=== PATIENT | male | born 1965 ===

== ENCOUNTER 2017-04-25 07:08 | Observation (INO) | payer OTHER ==
[2017-04-25] MEDS ORDERED: Sodium Chloride 0.9% 1,000 ML IV STA (07:27)
--- NOTE | 2017-04-25 07:31 | ED PDOC ---
HPI: Abdomen Time Seen by Provider: 04/25/17 07:14 Chief Complaint (Nursing): Abdominal Pain Chief Complaint (Provider): Abdominal Pain History Per: Patient History/Exam Limitations: no limitations Onset/Duration Of Symptoms: Hrs (this morning) Current Symptoms Are (Timing): Still Present Additional Complaint(s): Manuel is a 52 y/o male with no past medical history who presents to the ED complaining of epigastric abdominal pain starting this morning with associated nausea and vomiting. Patient denies diarrhea or fever. PMD: None Provided Past Medical History Reviewed: Historical Data, Nursing Documentation, Vital Signs Vital Signs: Last Vital Signs Temp 97.8 F 04/25/17 07:23 Pulse 64 04/25/17 07:23 Resp 18 04/25/17 07:23 BP 147/76 04/25/17 07:23 Pulse Ox 98 04/25/17 07:55 - Medical History PMH: No Chronic Diseases - Surgical History Surgical History: No Surg Hx - Family History Family History: States: Unknown Family Hx - Allergies Allergies/Adverse Reactions: Allergies Allergy/AdvReac Type Severity Reaction Status Date / Time No Known Allergies Allergy Verified 04/25/17 07:22 Review of Systems ROS Statement: Except As Marked, All Systems Reviewed And Found Negative Constitutional: Negative for: Fever Gastrointestinal: Positive for: Nausea, Vomiting, Abdominal Pain. Negative for : Diarrhea Physical Exam - Reviewed Nursing Documentation Reviewed: Yes Vital Signs Reviewed: Yes - Physical Exam Appears: Positive for: Non-toxic, No Acute Distress Skin: Positive for: Normal Color Eye Exam: Positive for: Normal appearance Cardiovascular/Chest: Positive for: Regular Rate, Rhythm. Negative for: Murmur Respiratory: Positive for: Normal Breath Sounds. Negative for: Wheezing, Respiratory Distress Gastrointestinal/Abdominal: Positive for: Normal Exam, Bowel Sounds, Soft, Tenderness (mild epigastric). Negative for: Guarding, Rebound Extremity: Positive for: Normal ROM. Negative for: Swelling Neurologic/Psych: Positive for: Alert, Oriented - Laboratory Results Result Diagrams: 04/25/17 07:42 04/25/17 07:42 - ECG O2 Sat by Pulse Oximetry: 98 (RA) Pulse Ox Interpretation: Normal Medical Decision Making Medical Decision Making: Time: 7:27 Initial Impression: Gastritis Initial Plan: --EKG --CMP --Lipase --CBC --Urine Dip --Pepcid --Zofran Scribe Attestation: Documented by Luis Balbuena, acting as a scribe for Johnnie Gallegos MD Provider Scribe Attestation: All medical record entries made by the Scribe were at my direction and personally dictated by me. I have reviewed the chart and agree that the record accurately reflects my personal performance of the history, physical exam, medical decision making, and the department course for this patient. I have also personally directed, reviewed, and agree with the discharge instructions and disposition. Disposition - Clinical Impression Clinical Impression: Abdominal pain, Abnormal EKG - Patient ED Disposition Is Patient to be Admitted: Yes - Disposition Disposition Time: 09:28 Condition: FAIR Forms: [employer] ([place]) - Pt Status Changed To: Hospital Disposition Of: Observation - POA Present On Arrival: None
[2017-04-25 08:05] LABS: BASO # 0.1 K/uL (0.0-0.2); BASO % 0.6 % (0.0-2.0); EOS # 0.1 K/uL (0.0-0.7); EOS % 1.1 % (0.0-4.0); LYMPH # 1.8 K/uL (1.0-4.3); LYMPH % 16.2 % (20.0-40.0); MEAN CELL VOLUME 85.7 fl (80.0-94.0); MEAN CORPUSCULAR HEMOGLOBIN 29.4 pg (27.0-31.0); MEAN CORPUSCULAR HGB CONC 34.3 g/dL (33.0-37.0); MONO # 0.7 K/uL (0.0-0.8); MONO % 6.4 % (0.0-10.0); NEUT # 8.3 K/uL (1.8-7.0); NEUT % 75.7 % (50.0-75.0); NRBC % 0.1 % (0.0-0.0); RBC 4.78 Mil/uL (4.40-5.90); RED CELL DISTRIBUTION WIDTH 13.4 % (11.5-14.5); WHITE BLOOD COUNT 10.9 K/uL (4.8-10.8)
[2017-04-25 08:30] LABS: ALB/GLOB RATIO 1.4 (1.0-2.1); ALBUMIN 4.4 g/dL (3.5-5.0); ALT/SGPT 48 U/L (21-72); AST/SGOT 30 U/L (17-59); BLOOD UREA NITROGEN 25 mg/dl (9-20); CALCIUM 9.4 mg/dL (8.4-10.2); GFR AFRICAN-AMERICAN > 60; GFR NON-AFRICAN AMERICAN > 60; LIPASE 80 U/L (23-300)
--- NOTE | 2017-04-25 10:30 | CP.PCM.HP ---
History of Present Illness - History of Present Illness History of Present Illness: CC: Chest pain This is a 52 yo male with no significant pmh who presents to the ED with the c/ o epigastric abdominal pain beginning at 4:00 AM this morning associated with nonbilious, nonbloody emesis. The patient denies eating anything out of the ordinary, constipation, diarrhea, fever. In the ED, the patient's labs including troponin were unremarkable; however EKG reveals sinus rhythm with diffuse T wave inversions and repolarization abnormalities. The patinet denies any chest pain or shortness of breath. He is to be placed on tele/obs for further cardiac workup including repeat of his EKG, serial troponins, and cardiology consultation with Dr. Chase. Present on Admission - Present on Admission Any Indicators Present on Admission: No Review of Systems - Review of Systems Review of Systems: 12 point review of systems are negative other than what was dictated in HPI. Past Patient History - Past Social History Smoking Status: Never Smoked - PSYCHIATRIC Hx Substance Use: No - SURGICAL HISTORY Hx Surgeries: Yes Other/Comment: lt arm surgery from work accident - ANESTHESIA Hx Anesthesia: Yes Hx Anesthesia Reactions: No Meds Allergies/Adverse Reactions: Allergies Allergy/AdvReac Type Severity Reaction Status Date / Time No Known Allergies Allergy Verified 04/25/17 07:22 Physical Exam - Additional Findings Additional findings: Physical exam: Constitutional- cooperative, awake, alert Head- NCAT, PERRL Eye- PERRL, EOMI ENT- normal exam, MMM. Neck- normal inspection, supple, no JVD Respiratory- CTAB, no wheezes rales rhonchi Cardiovascular- RRR, +S1, +S2 no MRG GI/Abdominal- normal bowel sounds, soft, no mass, no hsm Skin- warm, dry Extremities Exam- normal capillary refill, normal inspection Neurological Exam- alert, awake, oriented Psych- normal mood, normal affect Results - Vital Signs Recent Vital Signs: Last Vital Signs Temp 97.8 F 04/25/17 07:23 Pulse 64 04/25/17 07:23 Resp 18 04/25/17 07:23 BP 147/76 04/25/17 07:23 Pulse Ox 98 04/25/17 09:28 - Labs Result Diagrams: 04/25/17 07:42 04/25/17 07:42 Labs: Laboratory Results - last 24 hr 04/25/17 04/25/17 04/25/17 07:42 07:42 08:00 WBC 10.9 H RBC 4.78 Hgb 14.0 Hct 40.9 MCV 85.7 MCH 29.4 MCHC 34.3 RDW 13.4 Plt Count 238 MPV 8.0 Neut % (Auto) 75.7 H Lymph % (Auto) 16.2 L [place] % (Auto) 6.4 Eos % (Auto) 1.1 Baso % (Auto) 0.6 Neut # 8.3 H Lymph # 1.8 [place] # 0.7 Eos # 0.1 Baso # 0.1 Sodium 143 Potassium 4.5 Chloride 106 Carbon Dioxide 26 Anion Gap 16 BUN 25 H Creatinine 1.0 Est GFR ( Amer) > 60 Est GFR (Non-Af Amer) > 60 Random Glucose 165 H Calcium 9.4 Total Bilirubin 0.4 AST 30 ALT 48 Alkaline Phosphatase 93 Troponin I < 0.0120 Total Protein 7.4 Albumin 4.4 Globulin 3.0 Albumin/Globulin Ratio 1.4 Lipase 80 Assessment & Plan - Assessment and Plan (Free Text) Plan: ASSESSMENT/PLAN 1) Abnormal EKG, with T wave inversions, r/o ACS, may also indicate LVH with repolarization abnormality. Patient has + family history with his father requiring CABG at age 55 - Admit to telemetry/observation - Consultation with cardiology, Dr. Chase. Patient would benefit from stress test/echocardiogram for further workup. - Serial troponins, first one is negative - Lipid profile - HGA1C - Daily EKG - 2) Epigastric discomfort w/ N/V - Zofran 4 mg IV q 6 hours - may be related to abnormal EKG if ACS - Pain improved while in ED 3) DVT prophylaxis - Heparin SQ Decision To Admit - Pt Status Changed To: Hospital Disposition Of: Observation - . Bed Request Type: Telemetry Admitting Physician: Segundo Sanabria
--- NOTE | 2017-04-25 10:37 | CARD ---
APPROVED REPORT EKG Measurement Heart [id number] <Conclusion> Sinus rhythm with premature supraventricular complexes Left ventricular hypertrophy with repolarization abnormality
--- NOTE | 2017-04-25 10:42 | CP.PCM.CON ---
History of Present Illness - History of Present Illness History of Present Illness: 52 yo male with no significant pmh who presents to the ED with the c/o epigastric abdominal pain beginning at 4:00 AM this morning associated with non-bilious, non-bloody emesis. The patient denies eating anything out of the ordinary, constipation, diarrhea, fever Pt denies chest pain or any prior cardiac Hx EKG: LVH with repolarization abnormalities T wave changes 2* to LVH No evidence of ischemia Troponin: neg Past Patient History - Past Social History Smoking Status: Never Smoked - PSYCHIATRIC Hx Substance Use: No - SURGICAL HISTORY Hx Surgeries: Yes Other/Comment: lt arm surgery from work accident - ANESTHESIA Hx Anesthesia: Yes Hx Anesthesia Reactions: No Meds Allergies/Adverse Reactions: Allergies Allergy/AdvReac Type Severity Reaction Status Date / Time No Known Allergies Allergy Verified 04/25/17 07:22 - Medications Medications: Current Medications Famotidine (Pepcid) 20 mg IVP Q12 DEMETRIUS Heparin Sodium (Porcine) (Heparin) 5,000 units SC Q12 DEMETRIUS PRN Reason: Protocol Sodium Chloride (Sodium Chloride 0.9%) 1,000 mls @ 200 mls/hr IV .Q5H STA Stop: 04/25/17 12:26 Last Admin: 04/25/17 07:43 Dose: 200 mls/hr Ondansetron HCl (Zofran Inj) 4 mg IVP Q6 PRN PRN Reason: Nausea/Vomiting Physical Exam - Respiratory Exam Respiratory Exam: NORMAL BREATHING PATTERN - Cardiovascular Exam Cardiovascular Exam: REGULAR RHYTHM Results - Vital Signs Recent Vital Signs: Last Vital Signs Temp 97.8 F 04/25/17 07:23 Pulse 64 04/25/17 07:23 Resp 18 04/25/17 07:23 BP 147/76 04/25/17 07:23 Pulse Ox 98 04/25/17 09:28 - Labs Result Diagrams: 04/25/17 07:42 04/25/17 07:42 Labs: Laboratory Results - last 24 hr 04/25/17 04/25/17 04/25/17 07:42 07:42 08:00 WBC 10.9 H RBC 4.78 Hgb 14.0 Hct 40.9 MCV 85.7 MCH 29.4 MCHC 34.3 RDW 13.4 Plt Count 238 MPV 8.0 Neut % (Auto) 75.7 H Lymph % (Auto) 16.2 L [place] % (Auto) 6.4 Eos % (Auto) 1.1 Baso % (Auto) 0.6 Neut # 8.3 H Lymph # 1.8 [place] # 0.7 Eos # 0.1 Baso # 0.1 Sodium 143 Potassium 4.5 Chloride 106 Carbon Dioxide 26 Anion Gap 16 BUN 25 H Creatinine 1.0 Est GFR ( Amer) > 60 Est GFR (Non-Af Amer) > 60 Random Glucose 165 H Calcium 9.4 Total Bilirubin 0.4 AST 30 ALT 48 Alkaline Phosphatase 93 Troponin I < 0.0120 Total Protein 7.4 Albumin 4.4 Globulin 3.0 Albumin/Globulin Ratio 1.4 Lipase 80 Assessment & Plan (1) Abdominal pain Status: Acute (2) Abnormal EKG Assessment and Plan: EKG does not show any evidence of ischemia/arrhythmia LVH with repolarization Cardiac lott the pt is clear Status: Acute
[2017-04-25] MEDS ORDERED: Iohexol 240 (50 ml) PO ONE (15:49)
[2017-04-25] MEDS ORDERED: Sodium Chloride 0.9% 50 ML IV ONE (18:34)
[2017-04-25] MEDS ORDERED: Iohexol 300 100 ML IJ ONE (18:34)
[2017-04-25] MEDS: Lactated Ringer's 1,000 ML IV SCH (19:50)
--- NOTE | 2017-04-25 20:03 | CT ---
EXAM: CT Abdomen and Pelvis With Intravenous Contrast EXAM DATE/TIME: 04/25/2017 3:49 PM CLINICAL HISTORY: 52 years old, male; Pain; Abdominal pain; Epigastric; Additional info: Severe abdominal pain TECHNIQUE: Axial computed tomography images of the abdomen and pelvis with intravenous contrast. All CT scans at this facility use one or more dose reduction techniques, viz.: automated exposure control; ma/kV adjustment per patient size (including targeted exams where dose is matched to indication; i.e. head); or iterative reconstruction technique. Coronal and sagittal reformatted images were created and reviewed. CONTRAST: 95 mL of OMNIPAQUE 300 administered intravenously. COMPARISON: No relevant prior studies available. FINDINGS: LIMITATIONS: Mild to moderate streak/motion artifact. LOWER THORAX: No infiltrate seen in the lung bases. ABDOMEN: LIVER: Fatty infiltration of the liver. GALLBLADDER AND BILE DUCTS: No CT evidence of acute cholecystitis. No evidence of significant biliary ductal dilatation. PANCREAS: No CT evidence of acute pancreatitis. SPLEEN: No acute abnormality of the spleen identified. ADRENALS: No acute abnormality of the adrenal glands identified. KIDNEYS AND URETERS: Mild right hydroureteronephrosis, as well as a mildly delayed right nephrogram. No obstructing stones are seen in the right ureter, however, there is a 2 mm calcification in the bladder lumen posteriorly and on the right, image 156 of series 3. This most likely represents a stone which has recently passed from the right ureter into the bladder. STOMACH AND BOWEL: Colonic diverticulosis, with no evidence of acute diverticulitis. Otherwise, no significant abnormality of the bowel is identified. No evidence of bowel obstruction. APPENDIX: Appendix is seen, and is within normal limits in appearance. PELVIS: BLADDER: No acute abnormality of the bladder identified. REPRODUCTIVE: No acute abnormality of the reproductive organs is seen. ABDOMEN and PELVIS: INTRAPERITONEAL SPACE: No evidence of free intraperitoneal air or fluid. BONES/JOINTS: Bilateral pars defects at L5. SOFT TISSUES: No acute abnormality of the visualized soft tissues is seen. VASCULATURE: No evidence of abdominal aortic aneurysm. No evidence of periaortic hemorrhage. LYMPH NODES: No evidence of diffuse lymphadenopathy. IMPRESSION: - Mild right hydroureteronephrosis, most likely secondary to a 2 mm stone in the bladder lumen, which has presumably recently passed from the right ureter. - See above for remaining findings.
[2017-04-26 00:50] VITALS: RESP 18; O2SAT 95
[2017-04-26] MEDS: Lactated Ringer's 1,000 ML IV SCH (08:26)
[2017-04-26 08:38] VITALS: BP 137/81; PULSE 60; TEMP 98.3
--- NOTE | 2017-04-26 10:14 | CARD ---
APPROVED REPORT EKG Measurement Heart [id number] <Conclusion> Normal sinus rhythm Left ventricular hypertrophy with repolarization abnormality Abnormal ECG
--- NOTE | 2017-04-26 11:33 | CP.PCM.DIS ---
Provider - Provider Date of Admission: 04/25/17 09:26 Attending physician: Dago Sanabria DO Consults: Dr. Chase Time Spent in preparation of Discharge (in minutes): 25 Hospital Course - Lab Results Lab Results: Most Recent Lab Values WBC 10.9 K/uL (4.8-10.8) H 04/25/17 07:42 RBC 4.78 Mil/uL (4.40-5.90) 04/25/17 07:42 Hgb 14.0 g/dL (12.0-18.0) 04/25/17 07:42 Hct 40.9 % (35.0-51.0) 04/25/17 07:42 MCV 85.7 fl (80.0-94.0) 04/25/17 07:42 MCH 29.4 pg (27.0-31.0) 04/25/17 07:42 MCHC 34.3 g/dL (33.0-37.0) 04/25/17 07:42 RDW 13.4 % (11.5-14.5) 04/25/17 07:42 Plt Count 238 K/uL (130-400) 04/25/17 07:42 MPV 8.0 fl (7.2-11.7) 04/25/17 07:42 Neut % (Auto) 75.7 % (50.0-75.0) H 04/25/17 07:42 Lymph % (Auto) 16.2 % (20.0-40.0) L 04/25/17 07:42 [place] % (Auto) 6.4 % (0.0-10.0) 04/25/17 07:42 Eos % (Auto) 1.1 % (0.0-4.0) 04/25/17 07:42 Baso % (Auto) 0.6 % (0.0-2.0) 04/25/17 07:42 Neut # 8.3 K/uL (1.8-7.0) H 04/25/17 07:42 Lymph # 1.8 K/uL (1.0-4.3) 04/25/17 07:42 [place] # 0.7 K/uL (0.0-0.8) 04/25/17 07:42 Eos # 0.1 K/uL (0.0-0.7) 04/25/17 07:42 Baso # 0.1 K/uL (0.0-0.2) 04/25/17 07:42 Sodium 143 mmol/l (132-148) 04/25/17 07:42 Potassium 4.5 MMOL/L (3.6-5.0) 04/25/17 07:42 Chloride 106 mmol/L (98-107) 04/25/17 07:42 Carbon Dioxide 26 mmol/L (22-30) 04/25/17 07:42 Anion Gap 16 (10-20) 04/25/17 07:42 BUN 25 mg/dl (9-20) H 04/25/17 07:42 Creatinine 1.0 mg/dl (0.8-1.5) 04/25/17 07:42 Est GFR ( Amer) > 60 04/25/17 07:42 Est GFR (Non-Af Amer) > 60 04/25/17 07:42 Random Glucose 165 mg/dL (75-110) H 04/25/17 07:42 Hemoglobin A1c 6.3 % (4.2-6.5) 04/25/17 10:20 Calcium 9.4 mg/dL (8.4-10.2) 04/25/17 07:42 Total Bilirubin 0.4 mg/dl (0.2-1.3) 04/25/17 07:42 AST 30 U/L (17-59) 04/25/17 07:42 ALT 48 U/L (21-72) 04/25/17 07:42 Alkaline Phosphatase 93 U/L (38-126) 04/25/17 07:42 Troponin I < 0.0120 ng/mL (0.00-0.120) 04/25/17 20:20 Total Protein 7.4 G/DL (6.3-8.2) 04/25/17 07:42 Albumin 4.4 g/dL (3.5-5.0) 04/25/17 07:42 Globulin 3.0 gm/dL (2.2-3.9) 04/25/17 07:42 Albumin/Globulin Ratio 1.4 (1.0-2.1) 04/25/17 07:42 Triglycerides 118 mg/DL (0-149) 04/25/17 10:20 Cholesterol 203 mg/dL (0-199) H 04/25/17 10:20 LDL Cholesterol Direct 148 mg/dL (0-129) H 04/25/17 10:20 HDL Cholesterol 32 MG/DL (30-70) 04/25/17 10:20 Lipase 80 U/L (23-300) 04/25/17 07:42 TSH 3rd Generation 0.96 mIU/ML (0.46-4.68) 04/25/17 10:20 - Hospital Course Hospital Course: This is a 52 yo male with no significant pmh who presents to the ED with the c/ o epigastric abdominal pain beginning at 4:00 AM this morning associated with nonbilious, nonbloody emesis. The patient denies eating anything out of the ordinary, constipation, diarrhea, fever. In the ED, the patient's labs including troponin were unremarkable; however EKG reveals sinus rhythm with diffuse T wave inversions and repolarization abnormalities. He was subsequently placed on telemetry observation. Dr. Chase evaluated the patient and stated that EKG was nonischemic and changes were likely due to LVH- patient was clear from cardiology standpoint. However, the patient began to complain of continued nausea, vomiting, and epigastric abdominal pain especially after eating and unable to tolerate po yesterday afternoon. CT scan of the abdomen and pelvis with IV and po contrast was performed and revealed a passed kidney stone, with colonic diverticulosis but no evidence of acute GI pathology. This morning, the patient was able to tolerate a bland diet with no discomfort. He states he feels much better. He is being discharged in stable condition with ACS ruled out, with no further nausea/vomiting. He is to follow up with Dr. Chase or a development disability specialist of his choice in the next few weeks for further cardiac workup given his significant family history of cardiac disease and evidence of LVH on EKG. 1) Abnormal EKG, serial troponins negative and ACS ruled out - Dr. Chase- EKG nonischemic, likely left ventricular hypertrophy - Patient to follow up with development disability specialist outpatient for further workup, including echocardiogram and stress test 2) Epigastric pain , N/V - Likely due to passed kidney stone as evidenced on CT scan - , Pepcid, Zofran ODT prescribed for outpatient - Return to ED for worsening abdominal pain 3) Hypercholesterolemia - Lipitor 20 mg po HS as outpatient - Encourage DASH diet outpt Discharge Exam - Additional Findings Additional findings: Physical exam: Constitutional- cooperative, awake, alert Head- NCAT, PERRL Eye- PERRL, EOMI ENT- normal exam, MMM. Neck- normal inspection, supple, no JVD Respiratory- CTAB, no wheezes rales rhonchi Cardiovascular- RRR, +S1, +S2 no MRG GI/Abdominal- normal bowel sounds, soft, no mass, no hsm Skin- warm, dry Extremities Exam- normal capillary refill, normal inspection Neurological Exam- alert, awake, oriented Psych- normal mood, normal affect Discharge Plan - Discharge Medications Prescriptions: Atorvastatin [Lipitor] 20 mg PO HS #30 tab Famotidine [Pepcid] 20 mg PO BID #20 tab Ondansetron ODT [Zofran ODT] 4 mg PO Q6H PRN #30 odt PRN Reason: Nausea/Vomiting Phenobarb/Hyoscy/Atropine/Scop [ Tablet] 16.2 mg PO TID PRN #30 tablet PRN Reason: Irritable Bowel Symptoms - Follow Up Plan Condition: GOOD Disposition: HOME/ ROUTINE Instructions: Acute Abdominal Pain (DC), Acute Abdominal Pain (GEN)
== END 2017-04-26 11:53 | disposition home or self-care (01) ==
LOC: H.ER 07:08 → H.ERHOLD 09:26 → H.TEL 10:32
PROVIDERS: ADMIT Internal Medicine; ATTEND Internal Medicine
DX: R10.13 Epigastric pain (principal); R94.31 Abnormal electrocardiogram [ECG] [EKG]; N20.0 Calculus of kidney; K29.70 Gastritis, unspecified, without bleeding; E78.00 Pure hypercholesterolemia, unspecified
CPT/HCPCS: 74176; 74177; 80053; 80061; 83036; 83690; 84443; 84484; 85025; 93005; 96374; 96375; 99282; G0378; J1644; J1885; J2270; J2405; J7040; J7120; Q9966; Q9967